=== PATIENT | female | born 1960 | race Caucasian/White ===

== ENCOUNTER → 2021-01-09 14:34 | Outpatient (BNVA) | payer OTHER, SELFPAY | PROVIDERS: PCP Internal Medicine; Visit Provider Internal Medicine Pulmonary Disease ==

== ENCOUNTER 2021-01-23 08:58 | Outpatient (REF) | payer OTHER, SELFPAY ==
--- NOTE | 2021-01-23 11:01 | PFT_ITS ---
FLOWS: FEV1 of 86% of predicted at 1.90 L. FVC 84% predicted at 2.43 L. FEV1 to FVC ratio of 0.78. No bronchodilator response. LUNG VOLUMES: Total lung capacity 91% of predicted at 4.19 L. Residual volume 93% of predicted at 1.77 L. Slow vital capacity 89% of predicted at 2.42 L. Expiratory reserve volume 60% of predicted at 0.43 L. Diffusion capacity is mildly decreased, diffusion capacity adjust to normal after correction for alveolar ventilation. IMPRESSION: No obstructive or restrictive ventilatory defect. No bronchodilator response. Essentially normal pulmonary function test. MD SANG Cervantes/MODL / [id number]
== END 2021-01-23 08:59 | disposition home or self-care (01) ==
LOC: HO.RESP 08:58
PROVIDERS: PCP Internal Medicine; Visit Provider Internal Medicine Pulmonary Disease
DX: R05 Cough (principal)
CPT/HCPCS: 94060; 94727; 94729

== ENCOUNTER → 2021-01-31 09:06 | Outpatient (BNVA) | payer OTHER, SELFPAY | PROVIDERS: PCP Internal Medicine; Visit Provider Internal Medicine Pulmonary Disease | DX: R05 Cough (principal) ==

== ENCOUNTER 2023-05-08 19:07 | Emergency (ER) | payer MEDICARE, SELFPAY ==
--- NOTE | ~2023-05-08 | US_ITS ---
EXAMINATION: US ABDOMEN LIMITED CLINICAL INFORMATION: Abdominal pain. COMPARISON: None available. TECHNIQUE: Real-time imaging of the right upper quadrant abdominal viscera. FINDINGS: PANCREAS: Not well seen due to shadowing from overlying bowel gas. LIVER: Increased liver parenchymal echogenicity. There is a 5.4 cm simple cyst in the left hepatic lobe. No intrahepatic biliary ductal dilatation. GALLBLADDER: There is a 0.2 cm nonmobile gallbladder polyp. No shadowing stones. No gallbladder wall thickening or pericholecystic free fluid. Negative Ventura's sign. COMMON BILE DUCT: Normal in caliber measuring 0.3 cm in diameter. RIGHT KIDNEY: Normal. No hydronephrosis. No renal calculi or focal parenchymal lesions. The kidney measures 9 cm in maximum dimension. FREE FLUID: None. US/US abdomen limited IMPRESSION: 1. Nonspecific increased liver parenchymal echogenicity which could be seen in the setting of hepatic steatosis or hepatocellular disease. 2. There is a 0.2 cm gallbladder polyp. If the patient has no risk factors for gallbladder malignancy or symptoms attributable to the gallbladder, no imaging follow-up is recommended. Otherwise, a follow-up ultrasound in 6-12 months is recommended.
--- NOTE | ~2023-05-08 | CT_ITS ---
EXAMINATION: CT ABDOMEN AND PELVIS WITH CONTRAST CLINICAL INFORMATION: epigastric pain COMPARISON: None. TECHNIQUE: Multidetector volumetric imaging was performed from the superior aspect of the liver through the pubic symphysis following administration of 85 mL Omnipaque 300 intravenous contrast. Sagittal and coronal reformatted images were obtained on the technologist workstation.. This CT examination was performed using dose optimization techniques as appropriate, variously including the following: *Automated exposure control *Adjustment of mA and/or kV according to patient size (this includes techniques or standardized protocols for targeted exams where dose is matched to indication/reason for exam; i.e. extremities or head) *Use of iterative reconstruction technique DLP: 273 mGy-cm FINDINGS: LUNG BASES: Minimal dependent atelectasis. LIVER, GALLBLADDER, AND BILIARY TREE: The liver is normal in size, shape, and attenuation. Low-attenuation 5.2 cm cyst in segment 4 the liver. No suspicious focal hepatic lesion or biliary ductal dilatation is present. The gallbladder is contracted but otherwise unremarkable with no evidence of radiopaque gallstones, gallbladder wall thickening, or obvious pericholecystic inflammatory changes. PANCREAS: Unremarkable. SPLEEN: Unremarkable. ADRENAL GLANDS: Unremarkable. KIDNEYS AND URETERS: The kidneys are normal in size, shape, and attenuation. No hydronephrosis, hydroureter, or calculi seen. No perinephric stranding. BLADDER: Unremarkable. GASTROINTESTINAL TRACT: Few scattered colonic diverticula are seen but no colonic wall thickening or pericolonic inflammatory change to suggest diverticulitis. Visualized small bowel is unremarkable. Appendix is not visualized and may be surgically absent but no focal inflammatory changes seen in the right lower quadrant. ABDOMINAL WALL: No significant hernia is appreciated. LYMPHOVASCULAR STRUCTURES: Vascular calcification within the aorta iliac system. No bulky adenopathy PELVIC VISCERA: Unremarkable. OSSEOUS STRUCTURES: Unremarkable. CT/CT abdomen pelvis w IV con IMPRESSION: Chronic appearing changes as described above. I do not appreciate any acute intra-abdominal process.
[2023-05-08 19:22] VITALS: BP 142/76; PULSE 77; O2SAT 100
[2023-05-08 19:29] VITALS: BP 140/75; PULSE 62; RESP 18; TEMP 37; O2SAT 100
[2023-05-08 19:31] VITALS: BP 151/86; PULSE 77; O2SAT 100; BMI 18.9
[2023-05-08] MEDS: ondansetron HCL 4 MG/2 ML VIAL IVPUSH (19:38)
[2023-05-08 19:49] LABS: MANUAL DIFF FLAG NO
[2023-05-08 19:50] LABS: Basophils Percent Auto 0.5 % (0-2); Eosinophils Absolute Auto 0.1 X10*3/uL (0.0-0.4); Eosinophils Percent Auto 1.4 % (0-4); Hematocrit 36.7 % (37.0-47.0); Imm Gran Abs Auto 0.01 X10*3/uL (0.00-0.03); Imm Gran Pct Auto 0.2 % (0.0-0.4); Lymphocytes Absolute Auto 2.3 X10*3/uL (1.2-4.9); Lymphocytes Percent Auto 34.5 % (20-40); Mean Corpuscular HGB Conc 35.4 g/dl (31.0-35.0); Mean Corpuscular Hemoglobin 33.5 pg (27.0-33.0); Mean Corpuscular Volume 94.6 fL (80.0-98.0); Mean Platelet Volume 11.2 fL (9.4-12.3); Monocytes Absolute Auto 0.7 X10*3/uL (0.1-1.2); Monocytes Percent Auto 10.2 % (2-11); Neutrophils Absolute Auto 3.6 x10*3/uL (2.0-8.3); Neutrophils Percent Auto 53.2 % (45-73); Platelet Count 225 X10*3/uL (160-400); Red Blood Count 3.88 X10*6/uL (4.20-5.50); Red Cell Distribution Width 11.7 % (11.0-16.0); White Blood Count 6.7 X10*3/uL (4.8-10.8)
--- OUTSIDE RECORDS SUMMARY | 2023-05-08 20:01 | XMS_ITS | Continuity of Care Document ---
Author Name Unknown Organization [facility] Address [address] [place] [address] [address], [address] [place] [address]- Care Team Providers Care Facetor Name Role Phone Mariluz Monson MD Primary Care Physician Encounter [facility] [place] Date(s): 12/04/22 - 01/03/[address], [address] [place] [address]- Allergies, Adverse Reactions, Alerts Substance Reaction Severity Status erythromycin Active Immunizations Given and Recorded Vaccine Date Status Refusal Reason SARS-CoV-2 (COVID-19) mRNA BNT-162b2 vac 12/19/20 Given SARS-CoV-2 (COVID-19) mRNA BNT-162b2 vac 11/28/20 Given Medications acetaminophen 325 mg oral tablet 975 mg, By Mouth, Every 6 hours, If temperature greater than 101.5, Refills 0, Maintenance, 12/25/22 10:03:00 EDT, Partial fill upon patient request if the prescription is for a schedule II opioid drug. Start Date: 12/25/22 Status: Ordered aspirin 81 mg oral delayed release tablet 81 mg, By Mouth, Daily, Refills 0, Maintenance, 12/25/22 10:03:00 EDT, Partial fill upon patient request if the prescription is for a schedule II opioid drug. Start Date: 12/25/22 Status: Ordered atorvastatin 80 mg oral tablet 1 tablet = 80 mg, By Mouth, Daily, 0 Refills, Maintenance, 12/23/22 7:53:00 EDT, Partial fill upon patient request if the prescription is for a schedule II opioid drug. Start Date: 12/23/22 Status: Ordered B-12 1000 mcg oral tablet 1 tablet = 1,000 mcg, By Mouth, Daily, 0 Refills, Maintenance, 12/23/22 7:52:00 EDT, Partial fill upon patient request if the prescription is for a schedule II opioid drug. Start Date: 12/23/22 Status: Ordered docusate sodium 100 mg oral capsule 1 capsule = 100 mg, By Mouth, 2 times a day, # 28 capsule, 0 Refills, Maintenance, 12/25/22 10:03:00 EDT, Capsule, [facility]/pharmacy #[id number], Partial fill upon patient request if the prescription is for a schedule II opioid drug., 163, cm, 12/23/22 7:46:00 E... Start Date: 12/25/22 Stop Date: 01/08/23 Status: Ordered ezetimibe 10 mg oral tablet 1 tablet = 10 mg, By Mouth, Daily, 0 Refills, Maintenance, 12/23/22 7:54:00 EDT, Partial fill upon patient request if the prescription is for a schedule II opioid drug. Start Date: 12/23/22 Status: Ordered Folic Acid Daily, 0 Refills, Maintenance, 12/23/22 7:55:00 EDT, Partial fill upon patient request if the prescription is for a schedule II opioid drug. Start Date: 12/23/22 Status: Ordered levothyroxine 0.05 mg oral tablet = 50 mcg, By Mouth, Daily, 0 Refills, Maintenance, 08/05/18 11:20:09 EST, Tablet Start Date: 08/05/18 Status: Ordered levothyroxine 0.1 mg oral tablet = 100 mcg, By Mouth, Daily, 0 Refills, Maintenance, 08/05/18 11:20:11 EST, Tablet Start Date: 08/05/18 Status: Ordered MiraLax Powder 1 pack/packet = 17 Gm, By Mouth, Daily, 0 Refills, Maintenance, 08/05/18 11:20:28 EST, Powder Start Date: 08/05/18 Status: Ordered Omeprazole By Mouth, Daily, 0 Refills, Maintenance, 12/23/22 7:56:00 EDT, Partial fill upon patient request ifthe prescription is for a schedule II opioid drug. Start Date: 12/23/22 Status: Ordered pantoprazole 40 mg oral delayed release tablet = 40 mg, By Mouth, Daily, 0 Refills, Maintenance, 08/05/18 11:20:26 EST, EC Tablet Start Date: 08/05/18 Status: Ordered Paxil 10 mg oral tablet 10 mg, 1, tablet, By Mouth, Daily, Refills 0, Maintenance, 08/03/18 6:23:39 EST Start Date: 08/03/18 Status: Ordered simvastatin 20 mg oral tablet 20 mg, 1, tablet, By Mouth, Daily at bedtime, # 30 tablet, Refills 0, Maintenance, 01/07/16 8:20:47 Start Date: 01/07/16 Status: Ordered Social History Social History Type Response Smoking Status Former smoker; Tobac co user in household: No; Other: quit 13 years ago; entered on: 01/15/16 Sex Patient Care team information Care Team Personnel Name: Mariluz Monson MD Position: [facility] Physician (General Medicine) Member Role: PCP Address: Address: [address] [place] [address]- Name: Rosalia Dominguez RN Position: [facility] RN Member Role: Primary Care Nurse Name: Dustin Quinn RN Position: S RN Member Role: Primary Care Nurse Name: Marquita Hargrove RN Position: [facility] RN Member Role: Primary Care Nurse Care Team Related Persons Name: FARRUKH BERNAL Address: [address] [address]
--- OUTSIDE RECORDS SUMMARY | 2023-05-08 20:01 | XMS_ITS | Continuity of Care Document ---
Author Name Unknown Organization [facility] y Address [address] [place] [address] [address], [address] [place] [address]- Care Team Providers Care Nutrition Services Associate Name Role Phone Mariluz Monson MD Primary Care Physician [phone] Encounter [facility] [place] Date(s): 01/08/23 - 02/07/[address], [address] [place] [address]- Allergies, Adverse Reactions, Alerts Substance Reaction Severity [...] 0 Refills, Maintenance, 12/25/22 10:03:00 EDT, Capsule, [facility]/pharmacy #[id number], Partial fill upon patient request if [...] Team Personnel Name: Mariluz Monson MD Position: [facility] Physician - Primary Care Member Role: PCP Address: Address: [address] [place] [address]- Name: Rosalia Dominguez RN Position: S RN Member Role: Primary Care Nurse Name: Dustin Quinn RN Position: S RN Member Role: Primary Care Nurse Name: Marquita Hargrove RN Position: [facility] RN Member Role: Primary Care Nurse Care Team Related Persons Name: FARRUKH BERNAL Address: [address] [address]
--- OUTSIDE RECORDS SUMMARY | 2023-05-08 20:02 | XMS_ITS | Continuity of Care Document ---
Author Name Unknown Organization [facility] y Address [address] [place] [address] [address], [address] [place] [address]- Care Team Providers Care Drill Runner Helper Name Role Phone Mariluz Monson MD Primary Care Physician [phone] [place] [facility] [place] [id number] Date(s): 12/23/22 - 12/30/[address], [address] [place] [address]- Attending Physician: Sanjay PEARSON, Christoph Gatica Referring Physician: Zack PEARSON, Too Power Allergies, Adverse Reactions, Alerts Substance Reaction Severity [...] 0 Refills, Maintenance, 12/25/22 10:03:00 EDT, Capsule, [facility]/pharmacy #[id number], Partial fill upon patient request [...] opioid drug. Start Date: 12/23/22 Status: Ordered oxyCODONE 5 mg oral tablet 5 mg, 1, tablet, By Mouth, Every 4 hours, PRN, for 7 days, # 40 tablet, Refills 0, Tot. Refills 0, Acute 01/01/23 10:04:00 EDT, Pain , Moderate, 12/25/22 10:04:00 EDT, Route to Pharmacy Electronically, [facility]/pharmacy #[id number], Partial fill upon patient req... Start Date: 12/25/22 Stop Date: 01/01/23 Status: Ordered pantoprazole 40 mg oral delayed [...] 01/07/16 8:20:47 Start Date: 01/07/16 Status: Ordered Vital Signs Most recent to oldest [Reference Range]: 1 Height 163 cm (12/23/22 7:46 AM) Weight 63.5 kg (12/23/22 7:46 AM) Body Mass Index [18.5-24.99 kg/m2] 23.9 kg/m2 (12/23/22 7:46 AM) Social History Social History Type Response Smoking Status Former smoker; Tobac co user in household: No; Other: quit 13 years ago; entered on: 01/15/16 Sex Patient Care team information Care Team Personnel Name: Mariluz Monson MD Position: [facility] Physician (General Medicine) Member Role: PCP Address: Address: [address] [place], [place] [address] Name: Angelica HEATON, Rosalia Position: S RN Member Role: Primary Care Nurse Name: Dustin Quinn RN Position: S RN Member Role: Primary Care Nurse Name: Marquita Hargrove RN Position: S RN Member Role: Primary Care Nurse Care Team Related Persons Name: FARRUKH BERNAL Address: [address] [address]
--- OUTSIDE RECORDS SUMMARY | 2023-05-08 20:02 | XMS_ITS | Continuity of Care Document ---
Author Name Unknown Organization [facility] Address [address] [place] [address] [address], [address] [place] [address]- Care Team Providers Care Advanced Manufacturing Technician Name Role Phone Mariluz Monson MD Primary Care Physician [place] [facility] [place] - 02/14/[address], [address] [place] [address]- Attending Physician: Daniela Pena Admitting Physician: AdmtrDaniela Referring Physician: Admtr, Ar8 Allergies, Adverse Reactions, Alerts Substance Reaction Severity [...] 0 Refills, Maintenance, 12/25/22 10:03:00 EDT, Capsule, [facility]/pharmacy #[id number], Partial fill upon patient request if [...] Team Personnel Name: Mariluz Monson MD Position: [facility] Physician - Primary Care Member Role: PCP Address: Address: [address] [place] [address]- Name: Rosalia Dominguez RN Position: [facility] RN Member Role: Primary Care Nurse Name: Dustin Quinn RN Position: [facility] RN Member Role: Primary Care Nurse Name: Marquita Hargrove RN Position: [facility] RN Member Role: Primary Care Nurse Care Team Related Persons Name: FARRUKH BERNAL Address: [address] [address]
--- OUTSIDE RECORDS SUMMARY | 2023-05-08 20:02 | XMS_ITS | Continuity of Care Document ---
Author Name Unknown Organization [facility] ter Address [address] [place] [id number]- Care Team Providers Care Oxygen Tank Filler Name Role Phone Mariluz Monson MD Primary Care Physician [place] [facility] [place]24[place] - 12/25/[address] [address] Discharge Disposition: A-D/C Home Attending Physician: Christoph Grace MD Admitting Physician: Christoph Grace MD Referring Physician: Christoph Grace MD Allergies, Adverse Reactions, Alerts Substance Reaction Severity [...] 0 Refills, Maintenance, 12/25/22 10:03:00 EDT, Capsule, [facility]/pharmacy #[id number], Partial fill upon patient request if [...] 12/25/22 10:04:00 EDT, Route to Pharmacy Electronically, [facility]/pharmacy #[id number], Partial fill upon patient req... Start Date: [...] 01/07/16 8:20:47 Start Date: 01/07/16 Status: Ordered Results Radiology Reports * Exam Date Time Procedure Performing Provider Status 12/24/22 1:49 PM C-Arm > 1 Hour [facility]o [facility]; [place] (Verified) Notes: (C-Arm > 1 Hour) Reason For Exam: Disc Herniation C4-C6 RESULT: C-Arm > 1 Hour Spine Single View, C-Arm > 1 Hour INDICATION: Reason: Disc Herniation C4-C6; Special Instructions: [id number] FT:11sec 2.274 mGy COMPARISONS: None TECHNIQUE: Fluoroscopy support was provided. There was no radiologist in attendance. FLUOROSCOPY TIME: 11 seconds EXPOSURE: 2.274 mGy (reference air kerma) TECHNOLOGIST TIME: 2 hours 10 minutes FINDINGS: 6 images were submitted showing ACDF at C4-C6. Please refer to operative note for full details. IMPRESSION: See above. WSN: [id number] Ordering Physician: Christoph Grace Dictated By: Jaylan Narvaez MD Dictated Date/Time: 12/24/22 4:55 pm Reviewed By: Jaylan Narvaez MD Signed By: Jaylan Narvaez MD Signed Date/Time: 12/24/22 4:55 pm Transcribed By: CSVolodymyr Transcribed Date/Time: 12/24/22 4:55 pm * Exam Date Time Procedure Performing Provider Status 12/24/22 1:49 PM Spine Single View [facility] (Verified) Notes: (Spine Single View) Reason For Exam: Disc Herniation C4-C6 RESULT: Spine Single View Spine Single View, C-Arm > 1 Hour INDICATION: Reason: Disc Herniation C4-C6; Special Instructions: [id number] FT:11sec 2.274 mGy COMPARISONS: None TECHNIQUE: Fluoroscopy support was provided. There was no radiologist in attendance. FLUOROSCOPY TIME: 11 seconds EXPOSURE: 2.274 mGy (reference air kerma) TECHNOLOGIST TIME: 2 hours 10 minutes FINDINGS: 6 images were submitted showing ACDF at C4-C6. Please refer to operative note for full details. IMPRESSION: See above. WSN: [id number] Ordering Physician: Christoph Grace Dictated By: Jaylan Narvaez MD Dictated Date/Time: 12/24/22 4:55 pm Reviewed By: Jaylan Narvaez MD Signed By: Jaylan Narvaez MD Signed Date/Time: 12/24/22 4:55 pm Transcribed By: KRANTHI Transcribed Date/Time: 12/24/22 4:55 pm Vital Signs Most recent to oldest [Reference Range]: 1 2 3 Weight 65.2 kg (12/24/22 8:34 AM) Oxygen Saturation [94-100 %] 99 % (12/25/22 7:14 AM) 100 % (12/25/22 4:07 AM) 100 % (12/25/22 12:54 AM) Pulse Rate [55-90 bpm] 82 bpm (12/25/22 7:14 AM) 72 bpm (12/25/22 4:07 AM) 66 bpm (12/25/22 12:54 AM) Blood Pressure [90-138/55-84 mm Hg] 98/68mm Hg (12/25/22 7:14 AM) 130/64mm Hg (12/25/22 4:07 AM) 102/59mm Hg (12/25/22 12:54 AM) Respiratory Rate [16-30 br/min] 18 br/min (12/25/22 7:14 AM) 18 br/min (12/25/22 6:09 AM) 20 br/min (12/25/22 4:07 AM) Temperature [96.8-100.4 DegF] 97.5 DegF (12/25/22 7:14 AM) 98.3 DegF (12/25/22 4:07 AM) 98.2 DegF (12/25/22 12:54 AM) Liters per Minute 2 L/min (12/24/22 8:43 PM) 2 L/min (12/24/22 5:02 PM) 2 L/min (12/24/22 3:00 PM) Mode of Delivery (Oxygen) Room air (12/25/22 7:14 AM) Room air (12/25/22 4:07 AM) Room air (12/25/22 12:54 AM) Blood pressure sites Arm, left (12/25/22 7:14 AM) Arm, right (12/25/22 4:07 AM) Arm, left (12/25/22 12:54 AM) Temperature Route Oral (12/25/22 7:14 AM) Oral (12/25/22 4:07 AM) Oral (12/25/22 12:54 AM) Dry Weight 65.2 kg (12/24/22 8:34 AM) Weight Obtained Via Standing scale (12/24/22 8:34 AM) Social History Social History Type Response Smoking Status Former smoker; Tobac co user in household: No; Other: quit 13 years ago; entered on: 01/15/16 Sex Hospital Progress note * Valerie Paige RN: PERFORM, SIGN, VERIFY Event Display: Progress Note Hospital Authored Date: [id number] Patient: KENDY JOY Age: 62 years Sex: Female : 1960 Associated Diagnoses: None Author: Valerie Paige RN Findings Problem Related to Alteration in Comfort : Alteration in Comfort/new 12/25/2022 6:00 EDT Alteration in Comfort Related to Surgery Goals & Outcomes: Comfort Pt will report acceptable level of comfort & pain control, Pt will state importance of adhering to pain strategy regime, Pt will demonstrate necessary skills to manage pain, Non-verbal indicators will indicate comfort/pain control Interventions Implemented: Comfort Assess pain using appropriate pain scale/tools, Assess aggravating factors & prevent them accordingly, Assess alleviating factors & promote them accordingly BH Goals/Interventions, Comfort Yes Comfort, Problem Start 12/25/2022 6:30 Reviewed plan with, Comfort Patient Patient Progression, Comfort Pt progressing according to plan Comfort, Problem Ongoing Yes . Narrative/Incidental pt is A&ox4, VSS, pt denies any pain but reports numbness and tingling in legs and feet. pt is able to move both extremity while in bed. when pt tried getting out of bed for the first time with assistance and a walker, pt's legs were wobbly and had unsteady gait. [pt sat back in bed and tried use the bedisde commode with assitance. pt was weaned off O2 and is sating at 98%. pt has telfa/tegarderm dressing in the Right side of the neck with no new drainage . safety in place. 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 Note * Marquita Grimaldo RN: PERFORM Event Display: Discharge/Transfer Note Hospital Authored Date: Nursing Discharge Note Entered On: 12/25/2022 11:29 EDT Performed On: 12/25/2022 11:29 EDT by Marquita Grimaldo RN Nursing Discharge Note 2 Discharge Time : 12/25/2022 10:00 EDT Discharge Level of Care at Discharge : Homehealth/VNA Discharge VNA/Hospice/Home Care(v001) : [facility] [phone] Patient Left Unit Via : Wheelchair Patient Accompanied Off Unit with : Responsible adult DC Instructions Provided & Signed by Pt : Yes Patient Understands D/C Instructions : Yes Patient Instructions Discharge Signed : Yes Did Pt have Specialty Bed or Wound Vac : Marquita Grimm RN - 12/25/2022 11:29 EDT * Sachi Mehta: PERFORM, SIGN, VERIFY Sanjay PEARSON, Christoph Gatica: SIGN Event Display: Discharge/Transfer Note Hospital Authored Date: Patient: KENDY JOY Age: 62 years Sex: Female : 1960 Associated Diagnoses: None Author: Sachi Mehta Discharge Information Preoperative Diagnosis: Cervical myelopathy Final Postoperative Diagnosis: Cervical myelopathy Operation: anterior cervical discectomy and fusion with allograft bone and Xevo plate, C45, C56. Patient is aware of diagnosis Discharge condition: good Compared to admission: improved Functional Status: ambulatory Discharge Disposition Home: self care, family. Home care with: VNA. Discharge Date 12/25/2022 Admission Date 12/24/2022 Hospital Course Ms. Joy is a 62 year old female with a PMHx significant for TIA on Aspirin 81mg, Hypothyroidismand osteoarthritis; who underwent a C4-C6 ACDF with Dr. Grace on 12/24/22, for spinal cord compression and cervical myelopathy. Surgery was uneventful and they recovered in the PACU without complication. The patient is POD # 1 and complains of a incisional pain. Their numbness and tingling is significantly improved, her radicular pain is resolved and she continues to have hyperreflexia and feels off balanced with ambulation. She was evaluated by PT and OT who recommended home with services. She currently denies any chest pain, abdominal pain, weakness, paresthesias, difficulty breathing, saddleanesthesias or changes in urinary/bowel patterns. She is tolerating an oral diet, ambulating and voiding. Kendy is able to be discharged home with scripts for Oxycodone and Colace sent to the pharmacyelectronically. Post op wound care, recovery and expectations were discussed. All questions answered. Temperature 97.5 (07:14) Systolic Blood Pressure 98 (07:14) Diastolic Blood Pressure 68 (07:14) Pulse 82 (07:14) SpO2 99 (07:14) Respiratory Rate 18 (07:14) General: Appears stated age, awake, alert and NAD HEENT: Normocephalic, trachea midline Respiratory: Breathing is even and nonlabored Extremities:?? Symmetric, no edema, no calf tenderness. Skin: no obvious rashes Neurologic: anterior cervical incision is covered with a clean, dry and intact bandage. No edema orecchymosis present. No difficulty breathing, talking or swallowing. Mental status: awake, alert oriented to location, date and self Speech is clear, fluent, and appropriate, follows simple and complex commands CN: tracts well around the room no facial weakness hearing intact to voice shoulder shrug symmetric Motor: normal bulk and tone Upper Extremities- Deltoid:? 5/5 right? 5 left Biceps:? 5/ right? 55 left Triceps:? 55 right? 5/5 left Wrist Ext:? 55 right? 55 left Hand selling underwriter:? 55 right? 5/5 left Fine Motor:?? 5 right? 5/5 left Lower Extremities- Hip Flexion:? 5/5 right? 5/5 left Knee Extension:? 5/5 right? 5/5 left Plantar flexion:?? 55 right? 5/5 left Dorsiflexion:? 5/5 right? 5/5 left EHL:? 5/5 right? 5/5 left Sensation: intact to light touch throughout upper and lower extremities Reflexes: hyperreflexic bilateral Hoffmans Unable to access clonus due to rigid lower extremities Discharge Plan Diet/Activity/Patient Education/Follow Up Follow Up with: Mariluz Grace 01/08/2023 11:30 AM. Discharge Disposition Discharge: home with VNA. Home Health Face to Face I certify that this patient is under my care and that I or an allowed non- physician practitioner working with me, had a [id number] encounter with the patient on this date: 12/25/2022. Physical Therapy: Home exercise program to strengthen, increase ROM, Falls prevention training. Occupational Therapy: ADL Management, Fall prevention training. Physician Signature: Sachi Mehta MEDICATION LIST (Selected) Prescriptions Prescribed docusate sodium 100 mg oral capsule: 1 capsule = 100 mg, By Mouth, 2 times a day, # 28 capsule, 0 Refills, Maintenance, 12/25/22 10:03:00 EDT, Capsule, [facility]/pharmacy #[id number], Partial fill upon patient request if the prescription is for a schedule II opioid drug., 163, cm, 12/23/22 7:46:00 E... oxyCODONE 5 mg oral tablet: 5 mg, 1, tablet, By Mouth, Every 4 hours, PRN, for 7 days, # 40 tablet,Refills 0, Tot. Refills 0, Acute 01/01/23 10:04:00 EDT, Pain , Moderate, 12/25/22 10:04:00 EDT, Route to Pharmacy Electronically, [facility]/pharmacy #[id number], Partial fill upon patient req... Documented Medications Documented B-12 1000 mcg oral tablet: 1 tablet = 1,000 mcg, By Mouth, Daily, 0 Refills, Maintenance, 12/23/22 7:52:00 EDT, Partial fill upon patient request if the prescription is for a schedule II opioid drug. Folic Acid: Daily, 0 Refills, Maintenance, 12/23/22 7:55:00 EDT, Partial fill upon patient request if the prescription is for a schedule II opioid drug. MiraLax Powder: 1 pack/packet = 17 Gm, By Mouth, Daily, 0 Refills, Maintenance, 08/05/18 11:20:28 EST, Powder Omeprazole: By Mouth, Daily, 0 Refills, Maintenance, 12/23/22 7:56:00 EDT, Partial fill upon patient request if the prescription is for a schedule II opioid drug. Paxil 10 mg oral tablet: 10 mg, 1, tablet, By Mouth, Daily, Refills 0, Maintenance, 08/03/18 6:23:39 EST acetaminophen 325 mg oral tablet: 975 mg, By Mouth, Every 6 hours, If temperature greater than 101.5, Refills 0, Maintenance, 12/25/22 10:03:00 EDT, Partial fill upon patient request if the prescription is for a schedule II opioid drug. aspirin 81 mg oral delayed release tablet: 81 mg, By Mouth, Daily, Refills 0, Maintenance, 12/25/2309:03:00 EDT, Partial fill upon patient request if the prescription is for a schedule II opioid drug. atorvastatin 80 mg oral tablet: 1 tablet = 80 mg, By Mouth, Daily, 0 Refills, Maintenance, 237:53:00 EDT, Partial fill upon patient request if the prescription is for a schedule II opioid drug. ezetimibe 10 mg oral tablet: 1 tablet = 10 mg, By Mouth, Daily, 0 Refills, Maintenance, 12/23/22 7:54:00 EDT, Partial fill upon patient request if the prescription is for a schedule II opioid drug. levothyroxine 0.05 mg oral tablet: = 50 mcg, By Mouth, Daily, 0 Refills, Maintenance, 08/05/18 11:20:09 EST, Tablet levothyroxine 0.1 mg oral tablet: = 100 mcg, By Mouth, Daily, 0 Refills, Maintenance, 08/05/18 11:20:11 EST, Tablet pantoprazole 40 mg oral delayed release tablet: = 40 mg, By Mouth, Daily, 0 Refills, Maintenance, 08/05/18 11:20:26 EST, EC Tablet simvastatin 20 mg oral tablet: 20 mg, 1, tablet, By Mouth, Daily at bedtime, # 30 tablet, Refills 0, Maintenance, 01/07/16 8:20:47 * Marqiuta Grimaldo RN: PERFORM Event Display: Patient Education/Instruction Authored Date: Inpatient Adult Discharge Instructions [address] [address] Name: KENDY JOY DOB: 1960 Visit: 12/24/2022 14:52:00 Current Date: 12/25/2022 10:22 Account: [id number] Inpatient Adult Discharge Instructions We would like to thank you for allowing us to assist you with your healthcare needs. The following includes patient education materials and information regarding your injury/illness. Our entire staffstrives to provide an excellent experience for our patients and their families. PLEASE ENSURE YOU FOLLOW-UP PER THE INSTRUCTIONS BELOW! ?? YOUR OPINION IS IMPORTANT TO US! Please complete the survey you may receive by mail or email. Your feedback will be used to make improvements to the healthcare experiences of our patients and their families. Surveys are administered by [employer] ?? If further treatment with your primary care physician or another doctor is recommended, it is important for you to keep the appointment. Call your primary care physician or return to the Emergency Department immediately if your condition worsens, fails to improve, or new symptoms develop. If you need to find a doctor, you can call [facility] [employer] for a referral at [phone] or toll free at [phone] ([phone]) or log in to [email or web address].. ?? You can view and manage your care through the patient portal or by using a health care andrew of your choosing. [employer] is a website that allows you to securely view your medical information including your hospital discharge summary, office visit summaries, medications and follow-up visits. You can also request appointments, renew medications, and request access to your medical information using a health care andrew of your choosing, or just ask a question. You can enroll at [email or web address] or register during your next office visit. You have been discharged from [facility], Patient Care Unit: D3B. If you have any questions regarding these instructions after you leave, please call us and we will be happy to assist you. [facility] Your Care Team Discharging Providers Sachi Mehta Reason for Your Visit DISC HERNIATION C 4 C6 SACDF DS [facility] INPT OR Tests Performed Below is a partial list of the tests performed during your hospitalization. You may have had other tests and procedures not included in this list. Please discuss all test results with your provider. XR C-Arm > 1 Hour XR Spine Single View Primary Care Provider Mariluz Monson MD Advance Directive . Discharge Vitals Temperature: 97.5 DegF Weight: 65.2 kg Pulse Rate: 82 bpm ?? Respiratory Rate: 18 br/min ?? Systolic Blood Pressure: 98 mm Hg ?? Diastolic Blood Pressure: 68 mm Hg ?? Oxygen Saturation: 99 % ?? Studies Pending All tests and labs ordered during this hospital stay have been completed unless listed below. Please discuss all pending results with your provider listed above in these instructions. ?? No incomplete studies found What to do next Instructions From Your Doctor Discharge Orders Scheduled Follow-Up Appointments December. 2022 11:30 AM EDT ?? With: Sanjay PEARSON, Christoph Gatica Where: [address] [place] [address]- You Need to Schedule the Following Appointments Follow Up with??Christoph Grace When??01/08/2023 11:30 AM EDT Where: [address] [place] [address]- Business (1) Follow Up with??Mariluz Monson When??In 0 days Where: [address] [place] [address]- Business (1) Discharge Medications KENDY JOY :1960 Visit Date:12/24/2022 Medications: Please continue your medications until treatment is completed or stopped by your provider. Medications not listed below should be discontinued. Discuss any questions related to medications with your provider. What How Much When Instructions Next Dose New Oxycodone (oxyCODONE 5 mg oral tablet) 1 tab(s) Oral Every 4 hours as needed for Pain , Moderate Duration: 7 Days Pickup at [facility]/pharmacy #[id number] 12/25/22 as needed Changed Acetaminophen (acetaminophen 325 mg oral tablet) 975 Milligram Oral Every 6 hours If temperature greater than 101.5 ?? 12/25/22 as needed Changed Aspirin (aspirin 81 mg oral delayed release tablet) 81 Milligram Oral Daily 12/26/22 am Changed Docusate (docusate sodium 100 mg oral capsule) 1 capsule Oral Twice a day Duration: 14 Days Pickup at [facility]/pharmacy #[id number] 12/25/22 pm Unchanged Atorvastatin (atorvastatin 80 mg oral tablet) 1 tab(s) Oral Daily 12/26/22 am Unchanged Cyanocobalamin (B-12 1000 mcg oral tablet) 1 tab(s) Oral Daily 12/26/22 am Unchanged Ezetimibe (ezetimibe 10 mg oral tablet) 1 tab(s) Oral Daily 12/26/22 am Unchanged Folic Acid Daily 12/26/22 am Unchanged Levothyroxine (levothyroxine 0.05 mg oral tablet) 50 Microgram Oral Daily 12/26/22 am Unchanged Levothyroxine (levothyroxine 0.1 mg oral tablet) 100 Microgram Oral Daily 12/26/22 am Unchanged Omeprazole Oral Daily 12/26/22 am Unchanged Pantoprazole (pantoprazole 40 mg oral delayed release tablet) 40 Milligram Oral Daily 12/26/22 am Unchanged Paroxetine (Paxil 10 mg oral tablet) 1 tab(s) Oral Daily 12/26/22 am Unchanged Polyethylene Glycol 3350 (MiraLax Powder) 17 gram Oral Daily 12/26/22 am Unchanged Simvastatin (simvastatin 20 mg oral tablet) 1 tab(s) Oral Daily at Bedtime 12/25/22 bedtime Pharmacy Information [facility]/pharmacy #[id number]: [address], [place] [id number] [phone] ?? What How Much When Comments Stop Taking Celecoxib (celecoxib 200 mg oral capsule) 200 Milligram Oral Daily Stop Taking Senna (senna 187 mg oral tablet) 1 tab(s) Oral Daily at Bedtime Stop Taking Tramadol (traMADol 50 mg oral tablet) 50 Milligram Oral Every 4 hours as needed for Pain , Moderate Test Results Below is a partial list of the most recent Laboratory test results done prior to this discharge. You may have had other tests and procedures not included in this list. Please discuss all test resultswith your provider. Allergies (NKA means No Known Allergies) erythromycin Problems No qualifying data available Education Materials Below is the list of Educational Leaflet Providered with your Discharge Instructions. Neurosurgery-ACDF?? Valuables and Belongings I fully understand and agree that [facility] accepts no responsibility for all my personal property including clothing, toilet articles, radios, jewelry, dentures, hearing aids, rings, money, or any other property that is in my possession or is brought to me after admission. I understand certain valuables may be placed in a hospital safe for a short period of time. I understand that the hospital is not liable for loss or damage due to accident, fire, or other natural occurrence while said property is in the safe. I accept full responsibility for any personal property that I keep with me, and will not hold the hospital responsible in case of loss or disappearance. I acknowledge that i have been encouraged to send valuables and belongings home. ?? Review of Valuable and Belonging List: With patient Possessions released to: to PACU Date for Pt to Sign Valuables/Belongings: 12/25/22 07:14:00 ?? Other Discharge Information ? Case Management Discharge Plan?? Discharge Plan?? Discharge Agency Information?? Discharge Level of Care at Discharge: Homehealth/VNA Service Categories #1: Occupational Therapy, Physical Therapy Discharge Rx Program: Discharge Prescription Program Service Comments #1: The agency will contact you after discharge to schedule a home visit and initiate home services. Discharge VNA/Hospice/Home Care: [facility] [phone] ? Pulmonary Rehab Status?? Pulmonary Rehab Discharge Status?? Respiratory Rate: 18 br/min ? Common Emergency Awareness Tips IS IT A STROKE? Act FAST and Check for these signs: FACE Does the face look uneven? ARM Does one arm drift down? SPEECH Does their speech sound strange? TIME Call at any sign of stroke ?? Heart Attack Signs Chest discomfort: Most heart attacks involve discomfort in the center of the chest and lasts more than a few minutes, or goes away and comes back. It can feel like uncomfortable pressure, squeezing, fullness or pain. Discomfort in upper body: Symptoms can include pain or discomfort in one or both arms, back, neck, jaw or stomach. Shortness of breath: With or without discomfort. Other signs: Breaking out in a cold sweat, nausea, or lightheaded. Remember, MINUTES DO MATTER. If you experience any of these heart attack warning signs, call to get immediate medical attention! ?? Smoking can increase your chances of developing chronic health problems and can cause harmful effects to other family members in your house. If you smoke, you are strongly encouraged to quit. Please call [facility] Angella Joy Link at [phone] or [phone] ([phone]) or log in to [email or web address] for referrals to smoking cessation programs. ?? 376 Suicide & Crisis Lifeline is available 16/03 if you or someone you know needs to find a reason to keep living. By calling 907 you'll be connected to a skilled, trained counselor at a crisis center in your area. INPATIENT DISCHARGE INSTRUCTIONS SIGNATURE PAGE KENDY JOY Location:[facility] Registration Date and Time:12/24/2022 14:52 EDT Primary Care Physician: Carleen Monson MDanna, I KENDY JOY, have received the above patient education materials/instructions and have verbalized understanding. If ambulance or transport services are being used I further acknowledge being given a choice of service. ?? If you need to contact me, please call me at this number: . Patient/Ergonomic Specialist Name: Patient/Ergonomic Specialist Signature: Relationship to Patient: Witness Name/Signature: Date: * Sachi Mehta: PERFORM, SIGN, VERIFY Event Display: Patient Education Handout Authored Date: * Sachi Mehta: PERFORM Event Display: Patient Education Leaflets Authored Date: Neurosurgery-ACDF ?? 199 Neurosurgery Discharge Instructions ?? Postoperative instructions vary due to many different types of surgery.?? Your specific needs may require modifications to these instructions by your surgeon. ?? Diet ??? You should resume your usual diet at home unless instructed otherwise ? * You may prefer to eat soft foods ?? Medications ??? You will be provided with medication reconciliation when you leave the hospital explaining which medications you should continue and which you should stop ??? You may be discharged home with prescriptions with new medications which should be explained to you prior to discharge ?? Bowel Regimen ??? Narcotic pain medications commonly cause constipation ??? You should use an plfz-dkl-yhkqbrs stool softener, such as Colace or Senna, for as long as you are experiencing constipation ? * You should use an ztzb-nyd-fasydvy oral laxative or rectal suppository if you do not have a bowel movement within 3 days after your surgery ?? Incision and Wound Care ??? You should remove your dressing on the 3rd postoperative day ??? You do not need to apply any other dressing or bandage ??? You might have steri-strips underneath your bandage.?? It is okay if these fall off on their own; remove after two weeks if they have not fallen off yet ??? Do not apply creams, lotions, or ointments to the incision ??? You should call the office if you experience any ofthe following ??? Redness, swelling, or increasing pain/tenderness of the surgical incision site ??? Discharge of pus, blood, or other fluid from the surgical incision site ??? Wound separation ??? Temperature greater than 101.5 F ?? Bathing ??? Do not shower or get your incision wet until the 3rd postoperative day ??? Do not soak the incision in a bath, pool or any other body of water for 4 weeks ??? You should gently pat the incision dry with a towel immediately after bathing ? Activity ??? Do not drive for 2 weeks unless instructed otherwise ??? Do not drive while taking narcotic pain medication or muscle relaxants ??? Do not lift more than 15 to 20 lbs until seen again by your surgeon ??? Do not perform any strenuous activities, exercises or movements until instructed otherwise ??? Do not perform activities or positions that place stress on the operated area ??? _ Call your primary care physician for all questions and problems not related to your surgery, such as chronic medical conditions, e.g., diabetes, hypertension, etc. ??? Call [facility] for any questions or problems related to your surgery ??? Call [facility] if you have any difficulty speaking or swallowing ??? Call 911 or go to the emergency department if you have difficulty breathing ??? _ [facility] [address] [place] [address] , [address], [place], [place] [phone] _ ? Radiology * [facility] , CIS S: TRANSCRIBE Jaylan Narvaez MD: VERIFY Event Display: Result: Authored Date: Spine Single View, C-Arm > 1 Hour INDICATION: Reason: Disc Herniation C4-C6; Special Instructions: [id number] FT:11sec 2.274 mGy COMPARISONS: None TECHNIQUE: Fluoroscopy support was provided. There was no radiologist in attendance. FLUOROSCOPY TIME: 11 seconds EXPOSURE: 2.274 mGy (reference air kerma) TECHNOLOGIST TIME: 2 hours 10 minutes FINDINGS: 6 images were submitted showing ACDF at C4-C6. Please refer to operative note for full details. IMPRESSION: See above. WSN: [id number] Ordering Physician: Christoph Grace Dictated By: Jaylan Narvaez MD Dictated Date/Time: 12/24/22 4:55 pm Reviewed By: Jaylan Narvaez MD Signed By: Jaylan Narvaez MD Signed Date/Time: 12/24/22 4:55 pm Transcribed By: KRANTHI Transcribed Date/Time: 12/24/22 4:55 pm XR Spine Single view * [facility] , [place] S: TRANSCRIBE Jaylan Narvaez MD: VERIFY Event Display: Result: Authored Date: [id number] Spine Single View, C-Arm > 1 Hour INDICATION: Reason: Disc Herniation C4-C6; Special Instructions: [id number] FT:11sec 2.274 mGy COMPARISONS: None TECHNIQUE: Fluoroscopy support was provided. There was no radiologist in attendance. FLUOROSCOPY TIME: 11 seconds EXPOSURE: 2.274 mGy (reference air kerma) TECHNOLOGIST TIME: 2 hours 10 minutes FINDINGS: 6 images were submitted showing ACDF at C4-C6. Please refer to operative note for full details. IMPRESSION: See above. WSN: [id number] Ordering Physician: Christoph Grace Dictated By: Jaylan Narvaez MD Dictated Date/Time: 12/24/22 4:55 pm Reviewed By: Jaylan Narvaez MD Signed By: Jaylan Narvaez MD Signed Date/Time: 12/24/22 4:55 pm Transcribed By: KRANTHI Transcribed Date/Time: 12/24/22 4:55 pm Patient Care team information Care Team Personnel Name: Mariluz Monson MD Position: [facility] Physician (General Medicine) Member Role: PCP Address: Address: [address] [place] [address]- Name: Rosalia Dominguez RN Position: S RN Member Role: Primary Care Nurse Name: Dustin Quinn RN Position: S RN Member Role: Primary Care Nurse Name: Marquita Hargrove RN Position: [facility] RN Member Role: Primary Care Nurse Care Team Related Persons Name: FARRUKH JOY Address: [address] [address]
--- OUTSIDE RECORDS SUMMARY | 2023-05-08 20:02 | XMS_ITS | Continuity of Care Document ---
Author Name Unknown Organization [facility] Address [address] [place] [address] [address], [address] [place] [address]- Care Team Providers Care Night Custodian Name Role Phone Mariluz Monson MD Primary Care Physician Encounter [facility] [place] [place] Date(s): 01/15/23 - 01/22/[address], [address] [place] [address]- Attending Physician: Christoph Grace MD Referring Physician: Mariluz Monson MD Allergies, Adverse Reactions, Alerts Substance Reaction [...] 0 Refills, Maintenance, 12/25/22 10:03:00 EDT, Capsule, [facility]/pharmacy #[id number], Partial fill upon patient request if [...] oldest [Reference Range]: 1 Height 163 cm (01/15/23 11:33 AM) Weight 65.2 kg (01/15/23 11:33 AM) Body Mass Index [18.5-24.99 kg/m2] 24.54 kg/m2 (01/15/23 11:33 AM) Social History Social History Type Response Smoking Status Former smoker; Tobac co user in household: No; Other: quit 13 years ago; entered on: 01/15/16 Sex Patient Care team information Care Team Personnel Name: Mariluz Monson MD Position: [facility] Physician - Primary Care Member Role: PCP Address: Address: [address] [place] [address]- Name: Rosalia Dominguez RN Position: [facility] RN Member Role: Primary Care Nurse Name: Dustin Quinn RN Position: [facility] RN Member Role: Primary Care Nurse Name: Marquita Hargrove RN Position: [facility] RN Member Role: Primary Care Nurse Care Team Related Persons Name: FARRUKH BERNAL Address: [address] [address]
--- OUTSIDE RECORDS SUMMARY | 2023-05-08 20:02 | XMS_ITS | Continuity of Care Document ---
Author Name Unknown Organization [facility] Address [address] [place] [address] [address], [address] [place] [address]- Care Team Providers Care Woods Superintendent Name Role Phone Mariluz Monson MD Primary Care Physician [phone] [place] [facility] [place] - 02/07/[address], [address] [place] [address]- Attending Physician: Christoph Grace MD Referring Physician: [...] 0 Refills, Maintenance, 12/25/22 10:03:00 EDT, Capsule, [facility]/pharmacy #[id number], Partial fill upon patient request [...] Team Personnel Name: Mariluz Monson MD Position: [facility] Physician - Primary Care Member Role: PCP Address: Address: [address] [place] [address]- Name: Rosalia Dominguez RN Position: S RN Member Role: Primary Care Nurse Name: Dustin Quinn RN Position: S RN Member Role: Primary Care Nurse Name: Marquita Hargrove RN Position: [facility] RN Member Role: Primary Care Nurse Care Team Related Persons Name: FARRUKH BERNAL Address: [address] [address]
[2023-05-08 20:10] LABS: Alanine Aminotransferase 22 U/L (0-31); Albumin Level 4.3 g/dL (3.5-5.0); Alkaline Phosphatase 71 U/L (39-117); Anion Gap 14 (12-20); Aspartate Amino Transferase 24 U/L (5-31); Bilirubin Total 0.8 mg/dL (0.0-1.0); Blood Urea Nitrogen 18 mg/dL (9-16); Calcium 9.7 mg/dL (8.4-10.2); Carbon Dioxide 24 mmol/L (22-29); Chloride 107 mmol/L (96-108); Creatinine Clr Calc Pharmacy 61.7; Estimated Glomerular Filt Rate > 60; Glucose Random 107 mg/dL (60-115); Lipase 172 U/L (8-78); Potassium 3.2 mmol/L (3.3-5.1); Sodium 142 mmol/L (135-145); Total Protein 7.1 g/dL (6.5-8.0)
--- NOTE | 2023-05-08 20:57 | ECG_ITS ---
Test Reason : abd pain Blood Pressure : / mmHG Vent. Rate : 069 BPM Atrial Rate : 069 BPM P-R Int : 188 ms QRS Dur : 076 ms QT Int : 408 ms P-R-T Axes : 071 043 055 degrees QTc Int : 437 ms Normal sinus rhythm Normal ECG No previous ECGs available Referred By: Hannah Rivera Electronically Signed By:MAXINE PUENTES
--- NOTE | 2023-05-08 21:03 | ED_ITS ---
HPI - Nausea/Vomiting/Diarrhea General Chief complaint: Nausea/Vomiting/Diarrhea Stated complaint: LIGHT HEADED NAUSEA Time Seen by Provider: 05/08/23 20:22 History of Present Illness HPI Narrative: Patient is a 63-year-old female with no significant past medical history. Patient was eating in a restaurant had some oysters subsequently had some nausea feels lightheaded almost pass out very weak had some epigastric pain. No history of gallstones in the past. No history of abdominal surgery in the past. No fever no chills. No chest pain. Never actually passed out but got very close to. Denies any bloody stool. Denies any fever chills. No cough no congestion or personally symptoms. Patient is from home. Positive history of passing out prior. No medications. No allergies. Related Data Allergies Allergy/AdvReac Type Severity Reaction Status Date / Time tramadol Allergy Unknown Verified 01/31/21 09:14 Review of Systems 2 Review of Systems: Positive epigastric pain Positive near syncopal episode Yes all other systems are reviewed and are negative PMFSH Past Medical History Attestation statement: The following information was validated with the patient. Social History Social History Alcohol intake: current Alcohol intake frequency: a few times a week Alcohol type: wine Smoked in Last 30 Days: No Use of substances other than those prescribed or required for medical reasons: No Advance Directives: Yes Advance Directives Information Provided: No Advance Directives on File: No Physical Exam 2 Vital Signs: Vital Signs: Last Vital Signs Temp 98.6 F 05/08/23 19:29 Pulse 87 05/08/23 22:33 Resp 17 05/08/23 22:33 BP 132/66 05/08/23 22:33 Pulse Ox 95 05/08/23 22:33 O2 Del Method Room Air 05/08/23 22:33 BMI result Body Mass Index 18.9 Appearance: Alert. Oriented X3. No acute distress. Eyes: Pupils equal, round and reactive to light. ENT: Pharynx normal. Neck: Normal inspection. Neck supple. No lymph nodes noted. No crepitus CVS: Normal heart rate and rhythm. Pulses normal. Normal S1 and S2 Respiratory: No respiratory distress. Breath sounds normal. No Wheezing. No rales Abdomen: Soft and nontender. No rigidity. No distention. good BS x4 Skin: Skin warm and dry. Normal skin color. Normal skin turgor. Extremities: No lower extremity edema. Neurovascular intact to all extremities. No Lacerations. No Rash Neuro: Oriented X 3. No motor deficit. No sensory deficit. Moving all extermities. No slurred speech Medications Administered Discontinued Medications Generic Name Dose Route Start Last Admin Trade Name Freq PRN Reason Stop Dose Admin Sodium Chloride 1,000 mls @ 999 mls/hr 05/08/23 21:00 05/08/23 21:15 Ns IV 05/08/23 22:00 999 mls/hr .Q1H1M CHHAYA Administration Sodium Chloride 1,000 mls @ 999 mls/hr 05/08/23 21:00 05/08/23 21:15 Ns IV 05/08/23 22:00 999 mls/hr .Q1H1M CHHAYA Administration Iohexol 100 ml 05/08/23 22:15 05/08/23 22:15 Iohexol 350 Mg/Ml 100 Ml Infus..Btl IV 05/08/23 22:16 85 ml ONCE ONE Administration Ondansetron HCl 4 mg 05/08/23 19:35 05/08/23 19:38 Ondansetron Hcl 4 Mg/2 Ml Vial IVPUSH 05/08/23 19:36 4 mg ONCE ONE Administration Medical Decision Making Medical Decision Making [facility] Narrative: Patient presented today with having an episode after eating some osyter having epigastric pain nausea lightheaded. Patient had a near syncopal episode. Appeared pale to family. Denies any alcohol that point. Patient has no significant cardiac history. No history diabetes, hypertension, high cholesterol, smoking, AK. her labs showed a normal troponin. My interpretation patient's EKG showed a sinus pattern heart rate is 70 GA QRS QT see within normal limits is no acute ST segment elevation. Patient's electrolytes did show a elevation in lipase up to 170. This is approximately a little more than twice normal. CT scan of the abdomen pelvis however showed no evidence of inflammation at the pancreas. Question fatty liver noted. Ultrasound showed a likely small gallbladder polyp. Patient in no distress symptoms completely relieved after IV fluid and monitoring. Been in the emergency department for few hours at this point. Will discharge patient home no evidence for pancreatitis on CT patient is not anemic. Had a previous history of vasovagal syncope in the past. Will discharge patient home encourage fluids. Will have patient follow-up with GI for the elevated lipase, polyp in the gallbladder. Currently in stable condition. Patient has no risk factors for pulmonary emboli Differential Diagnosis Differential Diagnoses: The differential diagnosis associated with the presentation includes ACS, pancreatitis, biliary disease, Admission/Observation Consideration of admission/observation: Escalation of care including admission/observation considered Well-appearing symptoms completely relieved no need for admission Lab Data MDM Lab Attestation statement: I reviewed the patient's lab results. 05/08/23 19:44 05/08/23 19:44 Labs: Lab Results 05/08/23 Range/Units 19:44 WBC 6.7 (4.8-10.8) X10*3/uL RBC 3.88 L (4.20-5.50) X10*6/uL Hgb 13.0 (12.0-16.0) g/dl Hct 36.7 L (37.0-47.0) % MCV 94.6 (80.0-98.0) fL MCH 33.5 H (27.0-33.0) pg MCHC 35.4 H (31.0-35.0) g/dl RDW 11.7 (11.0-16.0) % Plt Count 225 (160-400) X10*3/uL MPV 11.2 (9.4-12.3) fL Immature Gran % (Auto) 0.2 (0.0-0.4) % Neut % (Auto) 53.2 (45-73) % Lymph % (Auto) 34.5 (20-40) % [place] % (Auto) 10.2 (2-11) % Eos % (Auto) 1.4 (0-4) % Baso % (Auto) 0.5 (0-2) % Lymph # (Auto) 2.3 (1.2-4.9) X10*3/uL [place] # (Auto) 0.7 (0.1-1.2) X10*3/uL Eos # (Auto) 0.1 (0.0-0.4) X10*3/uL Baso # (Auto) 0.0 (0.0-0.2) X10*3/uL Abs Immat Gran (auto) 0.01 (0.00-0.03) X10*3/uL Absolute Neuts (auto) 3.6 (2.0-8.3) x10*3/uL Absolute Nucleated RBC 0.000 (0.0-0.012) X10*3/uL Nucleated RBC % (auto) 0.0 (0.0-0.2) /100WBC Sodium 142 (135-145) mmol/L Potassium 3.2 L (3.3-5.1) mmol/L Chloride 107 (96-108) mmol/L Carbon Dioxide 24 (22-29) mmol/L Anion Gap 14 (12-20) BUN 18 H (9-16) mg/dL Creatinine 0.65 (0.5-1.4) mg/dL Estim Creat Clear Calc 61.7 Estimated GFR > 60 Random Glucose 107 (60-115) mg/dL Calcium 9.7 (8.4-10.2) mg/dL Total Bilirubin 0.8 (0.0-1.0) mg/dL AST 24 (5-31) U/L ALT 22 (0-31) U/L Alkaline Phosphatase 71 (39-117) U/L Troponin I High Sens < 2.7 (<3.5-17.0) ng/L Total Protein 7.1 (6.5-8.0) g/dL Albumin 4.3 (3.5-5.0) g/dL Lipase 172 H (8-78) U/L Independent Interpretation I performed an independent interpretation of an: EKG (Sinus heart rate is 70 GA QRS QTC within normal limits is no acute ST segment elevation) and CT Scan Interpretation: No obstruction or abscess no perforation Radiology Impression Discussion of test interpretation with radiology: I have reviewed the radiologist's reading. Independent Historian Clinical information obtained from an independent historian. History obtained from or confirmed by: Spouse Discharge Plan Discharge Clinical Impression: Syncope Patient Disposition: Home, Self-Care Instructions: Near Syncope (ED) Additional Instructions: A polyp was found in your gallbladder. Your lipase was mildly elevated. Please follow-up with GI on an outpatient basis. Referrals: Physician,Unknown J [Primary Care Provider] - 05/11/23 Renita Pérez MD [Physician] - 05/12/23
[2023-05-08] MEDS: 0.9 % Sodium Chloride 1,000 ML 999 ML IV ×2 (21:15)
[2023-05-08 21:51] LABS: Troponin-I High Sensitivity < 2.7 ng/L (<3.5-17.0)
[2023-05-08] MEDS: iohexoL 350 MG/ML 100 ML INFUS..BTL IV (22:15)
[2023-05-08 22:33] VITALS: BP 132/66; PULSE 87; RESP 17; O2SAT 95
== END 2023-05-09 00:09 | disposition home or self-care (01) ==
PROVIDERS: Emergency Provider Emergency Medicine Emergency Medical Services
DX: R55 Syncope and collapse (principal); R11.2 Nausea with vomiting, unspecified; R10.13 Epigastric pain
CPT/HCPCS: 36415; 74177; 76705; 80053; 83690; 84484; 85025; 93005; 96361; 96374; 99284; 99285; J2405; Q9967